=== PATIENT | female | born 1995 | race Asian ===

== ENCOUNTER 2019-05-11 22:17 | Emergency (ER) | payer SELFPAY ==
[~2019-05-11] VITALS: Ht 154.9 cm; Wt 50.0 kg
--- NOTE | 2019-05-11 22:28 | NUR ---
pt bib remsa with c/o panic attack after drinking etoh, pt does not normally drink
[2019-05-11 23:25] VITALS: BP 119/49
--- NOTE | 2019-05-11 23:26 | NUR ---
PT RESTING ON GURNEY, STARTED MOVING AROUND AND MOANING AFTER PT REALISED THIS RN WAS IN THR ROOM, RESTING CALMLY BEFORE. PT DENIES NEEDS AT THIS TIME.
== END 2019-05-12 01:05 | disposition home or self-care (01) ==
LOC: EDBD 22:17 → ED 05-12 00:45
DX: F10.129 Alcohol abuse with intoxication, unspecified (principal); F41.1 Generalized anxiety disorder; Y90.9 Presence of alcohol in blood, level not specified
CPT/HCPCS: 99283